=== PATIENT | male | born 1950 | race Caucasian/White ===

== ENCOUNTER 2020-05-18 10:20 | Emergency (ER) | payer MEDICARE, SELFPAY ==
[2020-05-18 10:27] VITALS: BP 149/51; PULSE 63; RESP 14; TEMP 36.1; O2SAT 99
--- NOTE | 2020-05-18 10:28 | ED.URI ---
HPI - URI/Sore Throat General Chief Complaint: Upper Respiratory Infection Stated Complaint: sore throat Time Seen by Provider: 05/18/20 10:40 Source: patient and RN notes reviewed Mode of arrival: ambulatory Limitations: no limitations History of Present Illness HPI Narrative: 70-year-old male presents with concern for sore throat. Reports symptoms started today. Report as he has been staying home, other than going to his doctor's office this past Thursday. He denies cough, shortness of breath, fever, chills, sweats. Denies any medications for his symptoms. MD elicited complaint: sore throat Related Data Home Medications Medication Instructions Recorded Confirmed aspirin 325 mg PO DAILY 05/18/20 05/18/20 gabapentin 100 mg PO HS 05/18/20 05/18/20 isosorbide mononitrate 60 mg PO DAILY 05/18/20 05/18/20 lisinopril 10 mg PO DAILY 05/18/20 05/18/20 loratadine 10 mg PO DAILY 05/18/20 05/18/20 metformin 500 mg PO BID 05/18/20 05/18/20 metoprolol tartrate 100 mg PO DAILY 05/18/20 05/18/20 montelukast 10 mg PO DAILY 05/18/20 05/18/20 prasugrel [Effient] 10 mg PO DAILY 05/18/20 05/18/20 ranolazine [Ranexa] 1,000 mg PO Q12H 05/18/20 05/18/20 rosuvastatin 20 mg PO DAILY 05/18/20 05/18/20 Allergies Allergy/AdvReac Type Severity Reaction Status Date / Time diltiazem Allergy Unknown HIVES Verified 05/18/20 10:35 Contrast Media Allergy Unknown COLD Uncoded 12/27/18 10:01 CHILLS, SHAKING Review of Systems Review of Systems: Narrative: CONSTITUTIONAL: Denies malaise, chills, sweats, or fever. EYES: Denies visual changes, redness, or discharge. ENT: Denies rhinorrhea, congestion, sinus pain, otalgia. Reports sore throat. CARDIOVASCULAR: Denies chest pain, palpitations, or edema. RESPIRATORY: Denies cough or dyspnea. GASTROINTESTINAL: Denies abdominal pain, nausea, vomiting, diarrhea SKIN: Denies rash or itching. MUSCULOSKELETAL: Denies myalgia. NEUROLOGIC: Denies headache. All systems reviewed & are unremarkable except as noted in HPI and below PMFSH Comments At time of signature, agree with nursing past medical, surgical, social and family history. There is no relevant family history pertinent to the presenting complaint Exam Narrative: Exam Narrative: GENERAL: Well-appearing, well-nourished, and in no acute distress. HEAD: Normocephalic EYES: PERRLA, conjunctivae clear ENT: Nares clear, turbinates pink, clear discharge. Mucous membranes moist. TM pearly munguia with dull light reflex bilaterally; no tragal tenderness. Oropharynx erythematous with small amount of white exudate, without lesions. Tonsils enlarged and without exudate, no drooling, no hoarseness, no trismus, uvula midline. NECK: Supple. No lymphadenopathy CHEST: Clear to auscultation, breath sounds equal. No wheezing, rhonchi, rales, or stridor. No respiratory distress, speaks in full sentences. HEART: Regular rate and rhythm. No murmur heard. SKIN: Warm, dry, no rash. NEURO: Alert and oriented x3. PSYCH: Normal mood and affect Course Course Emergency Course: Patient is aware of diagnosis, understands and agrees to treatment plan. Anticipatory guidance given. Patient agrees to follow-up as directed and is aware of reasons to seek care at the emergency department. Portions of this record may have been created with voice recognition software Vital Signs Vital signs: Vital Signs Temperature 97 F L 05/18/20 10:27 Pulse Rate 63 05/18/20 10:27 Respiratory Rate 14 05/18/20 10:27 Blood Pressure 149/51 H 05/18/20 10:27 Pulse Oximetry 99 05/18/20 10:27 Temperature 97 F L 05/18/20 10:27 Pulse Rate 63 05/18/20 10:27 Respiratory Rate 14 05/18/20 10:27 Blood Pressure 149/51 H 05/18/20 10:27 Pulse Oximetry 99 05/18/20 10:27 Reviewed. MDM - URI/Sore Throat MDM Narrative Medical decision making narrative: Differential diagnosis considered: Wu virus, strep pharyngitis, allergic rhinitis, upper respiratory tract infection, sinusitis
== END 2020-05-18 10:57 | disposition home or self-care (01) ==
PROVIDERS: Emergency Provider Nurse Practitioner; PCP Internal Medicine Geriatric Medicine
DX: J02.9 Acute pharyngitis, unspecified (principal); Z20.828 Contact with and (suspected) exposure to other viral communicable diseases; E11.9 Type 2 diabetes mellitus without complications; K21.9 Gastro-esophageal reflux disease without esophagitis; I10 Essential (primary) hypertension; E78.00 Pure hypercholesterolemia, unspecified; I25.10 Atherosclerotic heart disease of native coronary artery without angina pectoris; Z95.1 Presence of aortocoronary bypass graft
CPT/HCPCS: 87081; 87635; 87880; 99213; C9803; G0463; U0003

== ENCOUNTER 2020-05-18 11:58 | Outpatient (NON) | payer MEDICARE, SELFPAY ==
[2020-05-19 18:31] LABS: SARS-CoV-2 RNA PCR Negative
== END 2020-05-18 11:59 ==
PROVIDERS: PCP Internal Medicine Geriatric Medicine; Visit Provider Nurse Practitioner
DX: J02.9 Acute pharyngitis, unspecified (principal); Z20.828 Contact with and (suspected) exposure to other viral communicable diseases
CPT/HCPCS: 87635; C9803; U0003

== ENCOUNTER 2021-05-21 11:35 | Emergency (ER) | payer MEDICARE, SELFPAY ==
--- NOTE | ~2021-05-21 | XR_ITS ---
EXAMINATION: XR hip LT min 2V EXAM DATE: 05/21/2021 12:05 INDICATION: Fell 2-3 days ago, left hip, low back pain. TECHNIQUE: Left hip frontal, 'frog leg' projections for interpretation. Frontal projection pelvis. There is no prior study for comparison. FINDINGS: Smooth left hip femoral head contour, no radiographic evidence of avascular necrosis. Ther e is mild to moderate primary osteoarthritis. There are no acute fractures or dislocations identified . There is no subcutaneous gas. Rather extensive superficial femoral arterial calcifications. Ther e are no radiopaque foreign bodies. IMPRESSION: 1. XR hip LT min 2V exam without acute osseous findings. 2. Mild to moderate osteoarthritis. 3. SFA arteriosclerosis. Reviewed, dictated and finalized at location A. [employer]GER
[2021-05-21 11:45] VITALS: BP 118/48; PULSE 69; RESP 16; TEMP 36.6; O2SAT 69
--- NOTE | 2021-05-21 11:45 | ED.LOWEXIN ---
HPI - Extremity Injury (Lower) General Chief Complaint: Extremity Injury, Lower Stated Complaint: Fall Injury/ Lower Back/ Left Hip Time Seen by Provider: 05/21/21 11:45 Source: patient and RN notes reviewed History of Present Illness HPI Narrative: Patient is a 71-year-old male who presents the urgent care with complaints of left hip pain radiating to the left thigh and into the left low back. Patient states that he fell approximately 1 week ago while carrying in his groceries. Patient states that he fell onto his left side. Reports that he does take oxycodone for chronic back pain and has been using heat and ice intermittently for comfort. Patient has continued his normal daily living and activities. Patient did hit his head during the fall but denies of loss of consciousness and patient has not followed up since then in the emergency room or with his primary care doctor. No other acute complaints or injuries. No acute distress noted. Patient aware of the plan of care. Some parts of this dictation were generated by voice recognition software and may contain typographical and/or grammatical inaccuracies. Related Data Home Medications Medication Instructions Recorded Confirmed aspirin 325 mg PO DAILY 05/18/20 05/21/21 gabapentin 100 mg PO HS 05/18/20 05/21/21 isosorbide mononitrate 60 mg PO DAILY 05/18/20 05/21/21 lisinopril 10 mg PO DAILY 05/18/20 05/21/21 metformin 500 mg PO BID 05/18/20 05/21/21 metoprolol tartrate 100 mg PO DAILY 05/18/20 05/21/21 prasugrel [Effient] 10 mg PO DAILY 05/18/20 05/21/21 ranolazine [Ranexa] 1,000 mg PO Q12H 05/18/20 05/21/21 rosuvastatin 20 mg PO DAILY 05/18/20 05/21/21 oxycodone-acetaminophen [Percocet] 1 tablet PO TID 05/21/21 05/21/21 Allergies Allergy/AdvReac Type Severity Reaction Status Date / Time diltiazem Allergy Unknown HIVES Verified 05/21/21 11:53 Contrast Media Allergy Unknown COLD Uncoded 12/27/18 10:01 CHILLS, SHAKING Review of Systems Review of Systems: CONSTITUTIONAL: Denies fever, chills, or sweats. EYES: Denies visual changes, redness, or discharge. ENT: Denies rhinorrhea, congestion, sore throat, or otalgia. CARDIOVASCULAR: Denies chest pain, palpitations, or edema. RESPIRATORY: Denies cough or dyspnea. GASTROINTESTINAL: Denies abdominal pain, nausea, vomiting, or diarrhea. GENITOURINARY: Denies dysuria or hematuria. SKIN: Denies rash or itching. MUSCULOSKELETAL: Reports of left hip pain radiating to the left upper thigh as well as acute on chronic low back pain NEUROLOGIC: Denies headache, numbness, or weakness. All other systems reviewed are negative, except as documented in HPI. PMFSH Comments At the time of my signature, I reviewed and agree with the nursing past medical, surgical, social, and family history. There is no relevant family history pertinent to the patient complaint. Exam Narrative: GENERAL: This is a well-nourished, well-developed patient, in no apparent distress. HEAD: normocephalic, atraumatic. EYES: PERRL. Sclera clear/white. Vision is grossly intact. EARS: External ears normal NOSE: External nose normal with no obvious nasal discharge, nares without redness, no rhinorrhea. THROAT: Mucous membranes moist NECK: Neck supple CARDIOVASCULAR: Regular rate and rhythm RESPIRATORY: Clear to auscultation. Breath sounds equal bilaterally. No wheezes, rales, or rhonchi. SKIN: warm, intact with no suspicious lesions or rash, good texture and turgor. NEURO: awake, alert, and oriented to person, place and time. There were no obvious focal neurologic abnormalities. EXTREMITIES: No obvious deformity or shortening to the left lower extremity. Mild to moderate tenderness to the lateral left hip. Range of motion to left lower extremity within normal limits. Positive strong left radial pulse with capillary refill less than 2 seconds. No erythema, edema or ecchymosis noted to the left hip BACK: Mild to moderate diffuse lumbar tenderness more noted to t
[2021-05-21 11:56] VITALS: BP 118/48; PULSE 69; RESP 16; TEMP 36.6; O2SAT 69
== END 2021-05-21 12:26 | disposition home or self-care (01) ==
PROVIDERS: Emergency Provider Nurse Practitioner Family; PCP Internal Medicine Geriatric Medicine
DX: G89.29 Other chronic pain (principal); M54.50 Low back pain, unspecified; M25.552 Pain in left hip; Z79.84 Long term (current) use of oral hypoglycemic drugs; Z79.82 Long term (current) use of aspirin
CPT/HCPCS: 73502; 99213; G0463

== ENCOUNTER 2022-04-04 10:35 | Outpatient (CLI) | payer MEDICARE, SELFPAY ==
--- NOTE | 2022-04-04 10:53 | ECG_ITS ---
Measurements Intervals [place] Rate: 64 P: 78 KS: 205 QRS: 61 QRSD: 90 T: 41 QT: 403 QTc: 418 Interpretive Statements SINUS RHYTHM WITHIN NORMAL LIMITS NO PREVIOUS ECG AVAILABLE FOR COMPARISON Electronically Signed On 04-04-2022 15:40:55 CDT by Walter Teresa M.D.
== END 2022-04-04 10:36 | disposition home or self-care (01) ==
PROVIDERS: PCP Internal Medicine Geriatric Medicine; Visit Provider Neurological Surgery
DX: Z01.818 Encounter for other preprocedural examination (principal)
CPT/HCPCS: 93005

== ENCOUNTER 2025-03-02 11:52 | Outpatient (CLI) | payer MEDICARE, SELFPAY ==
--- NOTE | ~2025-03-02 | XR_ITS ---
EXAMINATION: XR hip RT 2V w AP pelvis, 03/02/2025 11:59 CDT HISTORY: Right hip pain COMPARISON: No comparisons available. Findings: No acute fracture or malalignment. No significant degenerative changes. Soft tissues unremarkable. Impression: No acute fracture or malalignment. Reviewed, dictated and finalized at location A. Impression: No acute fracture or malalignment.
== END 2025-03-02 11:53 | disposition home or self-care (01) ==
LOC: MICIMG 11:55
PROVIDERS: PCP Internal Medicine Geriatric Medicine; Visit Provider Nurse Practitioner Family
DX: M25.551 Pain in right hip (principal)
CPT/HCPCS: 73502